=== PATIENT | female | born 1995 | race Hispanic/Latino ===

== ENCOUNTER 2018-04-19 18:21 | Observation (INO) | payer OTHER ==
[~2018-04-19] VITALS: Ht 160 cm; Wt 86.2 kg
[~2018-04-19 18:21] MED LIST: MOTRIN600 MG PO
[2018-04-19 21:21] VITALS: BP 122/84
[2018-04-19 22:45] LABS: ABSOLUTE BASOPHIL COUNT 0 /CUMM (0.0-0.2); ABSOLUTE EOSINOPHIL COUNT 0 /CUMM (0.0-0.7); ABSOLUTE GRANULOCYTE CT 13.8 /CUMM (1.4-6.5); ABSOLUTE LYMPH COUNT 1.5 /CUMM (1.2-3.4); ABSOLUTE MONOCYTE COUNT 0.7 /CUMM (0.10-0.60); BASOPHIL % 0.1 % (0.0-2.0); EOSINOPHIL % 0.1 % (0-5); HEMATOCRIT 33.5 % (37-47); MEAN CORPUSCULAR HGB 27.7 PG (27.0-31.0); MEAN CORPUSCULAR HGB CONC 33.1 G/DL (33.0-37.0); MEAN CORPUSCULAR VOLUME 83.7 FL (81.0-99.0); MEAN PLATELET VOLUME 9.5 FL (7.4-10.4); PLATELET COUNT 210 /CUMM (130-400); RBC DISTRIBUTION WIDTH 14.8 % (11.5-14.5); WHITE BLOOD CELL COUNT 16.1 /CUMM (4.8-10.8)
[2018-04-19 22:50] LABS: GRANULOCYTE % 85.8 % (42.2-75.2)
--- NOTE | 2018-04-20 09:42 | PN- OBGYN ---
Surgical Brief Attending Note Brief Attending Note: 23yo, 39 2/7 wks, c/o ctxs since 04/19/2018, gettiong closer, also c/o a little decreased movement,? ROM. came to CBC for evaluation. on TOCO: ctxs q2-3 min, FHR cat I, cervix was 1 cm/posterior. Amnisure negative x 2. pt was kept for observation overnight, she was given morphin and vistril for theraputic rest. uneventful overnight, pt rested. This morning, she felt better, c/o ctxs spaced out, less painful. on TOCO: ctxs q 5-6 min, FHT assuring, cervix 2cm by RN. will d/c home with labor precautions reviewed with pt, she understand. FKC and precautions given. she understand.
[2018-04-21] MEDS ORDERED: PRENATAL TABLE1 EAC2 PO (08:36)
== END 2018-04-20 08:40 ==
LOC: CBCO 18:21 → GNO 21:15
PROVIDERS: Obstetrics & Gynecology
DX: O47.1 False labor at or after 37 completed weeks of gestation (principal); Z3A.39 39 weeks gestation of pregnancy
CPT/HCPCS: 36415; 81001; 84112; 96360; 96361; 96372; 96374; G0378; G0463; J2405; J7120

== ENCOUNTER 2018-04-21 00:50 | Inpatient (IN) | payer OTHER ==
[~2018-04-21] VITALS: Ht 160 cm; Wt 87.1 kg
[2018-04-21] MEDS ORDERED: PRENATAL TABLE1 EAC2 PO (08:36)
--- NOTE | 2018-04-21 16:35 | History & Physical ---
General Information and HPI MD Statement: I have seen and personally examined CARA SHAH and documented this H&P. The patient is a 23 year old female at [39] weeks and [4] days gestation who presented with a chief complaint of [CTX]. Source of Information: patient Exam Limitations: no limitations History of Present Illness: 23yo, 39 4/7wks, c/o ctxs for 3 days, she was evaluated and given therapeutic rest April 19, 2018 . She was discharged on April 20, 2018 due to no active labor . As per patient, contractions getting stronger and closer since yesterday, came to CBC for evaluation early this morning, her cervix was 3 cm dilated, she used nitrous for pain management. care started 10 weeks, uncomplicated thus far, history of thyroid nodule and she had partial thyroidectomy 2012 no medications afterwards. GBS positive. Allergies/Medications Allergies: Coded Allergies: cefixime (Intermediate, DIARRHEA 04/19/18) cefprozil (Intermediate, DIARRHEA 04/19/18) Home Med list Ibuprofen (Motrin) 600 MG TAB 1 TAB PO Q6P PRN PAIN Vit No.130/Iron/FA ( Tablet) 27 MG IRON-800 MCG TABLET 1 TAB PO DAILY supplement (Reported) Compliance With Home Meds: GOOD Past History word processor History : 1 Para: 0 Last Menstrual Period: 07/18/2017 Estimated Delivery Date: 04/24/2018 Past word processor History: none Medical History Blood Transfusion Hx: No Neurological: NONE EENT: NONE Cardiovascular: NONE Respiratory: asthma Gastrointestinal: GERD Hepatic: NONE Renal: NONE Musculoskeletal: h/o herniated disc Psychiatric: NONE Endocrine: hyperthyroidism Blood Disorders: NONE Cancer(s): NONE DIRECTOR OF SOCIAL WORK/Reproductive: NONE Surgical History Pertinent Surgical History: partial thyroidectomy 2012 laminectomy 2004 Past Family/Social History Psychosocial History Smoking Status: Never Smoked ETOH Use: denies use Illicit Drug Use: denies illicit drug use Review of Systems Review of Systems Constitutional: Reports: no symptoms. EENTM: Reports: no symptoms. Cardiovascular: Reports: no symptoms. Respiratory: Reports: no symptoms. GI: Reports: no symptoms. Genitourinary: Reports: see HPI. Musculoskeletal: Reports: see HPI. Skin: Reports: no symptoms. Neurological/Psychological: Reports: no symptoms. Hematologic/Endocrine: Reports: no symptoms. Immunologic/Allergic: Reports: no symptoms. All Other Systems: Reviewed and Negative Exam & Diagnostic Data Obstetric Exam Wgt Gained During : 49 lbs Pelvimetry: seems adequate Dilation (cm): 3 Effacement (%): 100 Station: -2 Membranes: intact Fluid: unknown Fundal Height (cm): 39 Multiple Gestation? No Contractions: q 2-5 min #1 - FHR Baseline: 140 Category: 1 Estimated Weight: 3800g Presentation: vertex Patient for Induction? No Physical Exam: VSS General: NAD Abdomen: gravid, soft, nontender. Ext: DCT (-) Labs Blood Type & Rh: O positive Antibody Screen: negative Hct/Hgb & Platelets #1: 13.5/39.9%,PLT [id number] Hct/Hgb & Platelets #2: 11.3/34.7%,[id number] Rubella: immune VDRL #1: negative VDRL #2: negative HbsAg: negative HIV #1: negative HIV #2 negative 1 Hr P Group B Strep: positive Initial Ultrasound: IUP at 10 wks Anatomy Ultrasound: nl Ultrasound for EFW: 7lb 7 oz at 38 wks Genetic Testing: nl Last 24 Hrs of Labs/Nigel: Laboratory Tests 04/21/18 1644: CBC w Diff NO MAN DIFF REQ, RBC 3.99 L, MCV 83.2, MCH 28.0, MCHC 33.7, RDW 14.8 H, MPV 9.0, Gran % 88.6 H, Lymphocytes % 6.4 L, Monocytes % 4.7, Eosinophils % 0, Basophils % 0.3, Absolute Granulocytes 16.0 H, Absolute Lymphocytes 1.2, Absolute Monocytes 0.8 H, Absolute Eosinophils 0, Absolute Basophils 0.1 Assessment/Plan Assessment/Plan: 23yo, 39 4/7wks, labor 1. admit pt, admission labs 2. antibiotics for GBS prophylaxis 3. pain management as needed 4. will monitor closely As Ranked By This Provider Problem List: 1. Core Measures Venous Thromboembolism VTE Risk Factors / No Mechanical VTE Prophylaxis d/t LowRisk-No Interven Req'd No VTE Pharm Prophylaxis d/t LowRisk-No Interven Req'd Attending MD Review Statement Attending Statement Attending MD Statement: examined this patient, discussed with family, discussed w/nursing
[2018-04-21 16:53] LABS: ABSOLUTE BASOPHIL COUNT 0.1 /CUMM (0.0-0.2); ABSOLUTE EOSINOPHIL COUNT 0 /CUMM (0.0-0.7); ABSOLUTE LYMPH COUNT 1.2 /CUMM (1.2-3.4); ABSOLUTE MONOCYTE COUNT 0.8 /CUMM (0.10-0.60); BASOPHIL % 0.3 % (0.0-2.0); EOSINOPHIL % 0 % (0-5); GRANULOCYTE % 88.6 % (42.2-75.2); HEMATOCRIT 33.2 % (37-47); MEAN CORPUSCULAR HGB CONC 33.7 G/DL (33.0-37.0); MEAN CORPUSCULAR VOLUME 83.2 FL (81.0-99.0); PLATELET COUNT 226 /CUMM (130-400); RBC DISTRIBUTION WIDTH 14.8 % (11.5-14.5); RED BLOOD CELL CT 3.99 /CUMM (4.20-5.40); WHITE BLOOD CELL COUNT 18.1 /CUMM (4.8-10.8)
--- NOTE | 2018-04-21 21:15 | PN- OBGYN ---
Surgical Brief Attending Note Brief Attending Note: pt c/o ctxs pain , request epidural on TOCO: ctxs q 2-3 min, FHR cat I cervix 4cm/100%/-2 will give epidural for pain maangement. monitor closely
[2018-04-21 23:50] VITALS: BP 134/78
--- NOTE | 2018-04-22 06:27 | PN- OBGYN ---
Surgical Brief Attending Note Brief Attending Note: pt is comfortable with epidural, no complaints on TOCO: ctxs q 2-3 min, FHR baseline 140, modertae variability, + acels, occasional variable decels, quickly returned to baseline cervix 7cm/100%/-2 will continue monitor closely
--- NOTE | 2018-04-22 09:12 | PN- OBGYN ---
Surgical Brief Attending Note Brief Attending Note: 08:30 Pt. is comfortable, denies pain. Feeling some pelvic pressure. Pelvic - membranes bulging, AROM - light meconium in abundant volume of AF cervix 7-8cm, 80%, -2 FHR 145, category 1, +accels, had a variable with my exam UCs q3-5 A: spontaneous labor at 39w P: con't present management IV Ab for GBS Peds to delivery for meconium, pt aware may need Pitocin augmentation 12:15pm Ucs q4, short, good pain control FHR 140s, category 1 Cervix unchanged and anterior lip swollen +soft caput presenting, bedside sono confirmed cephalic presentation Recommended Pitocin augmentation, pt in agreement Benadryl for cervical swelling 3:30pm UCs q3, moderate intensity, rectal pressure is very strong per patient rim/anterior lip slightly swollen, + caput, no molding (suture palpated laterally) FHR BL 145, category 1, no decels leaking AF with nonparticulate meconium will re-examine patient in 1 hour and try to push past the lip 1730 9cm, VTX(caput) at 0 station Temp 100.1 FHR 140s, cat. 1 UCs q2-3, mild/mod. A: protracted active labor at 39w after days of prolonged prodromal labor maternal temp rising P: IV Tylenol will be administered, and if T>100.3 will add Gentamicin I discussed slow labor with patient, which is abnormal, and doesn't make vaginal delivery impossible, but in order to continue to "wait longer" for the Pitocin to resolve the remaining cervix, the FHR must stay fine. In addition to wanting to wait longer, patient refuses to try pushing a few times right now to see if the cervix retracts, as she "doesn't want to damage the cervix". When I mention a possible C/S patient gets very upset and states "I won't do that after being in labor for 4 days". I'll re-evaluate her in 1 hour. 1944 Pt has been pushing for >1 hr. She pushes hard, and has brought the vertex down to 0/+1 station, but a large caput is deceiving and seems the baby is lower than it is. An anterior lip is still slipping in front of the head between contractions. I suspect OP position. FHR tracing is category 2, there are variable decels between UCs, variability is moderate until just recently, and there are no accels. Patient feels warm, and I suspect a developing chorioamnionitis. I recommended delivery by primary C/S, discussed the risks, benefits, and indications, and patient has given me informed consent. The patient received IV Tylenol which keeps her temp down, and has been getting PCN throughout the day for GBS. For OR premedication I will use Genta and Clinda.
--- NOTE | 2018-04-23 07:37 | Operative Report ---
Operative/Inv Procedure Report Surgery Date: 04/22/18 Name of Procedure: primary C/S Pre-Operative Diagnosis: arrest of second stage Post-Operative Diagnosis: same Estimated Blood Loss: scant (600) Surgeon/Beadworker: Jocelynn Duval MD Anesthesia: block (epidural) IV Fluids: LR Urine Output: 400, red, clear Specimens: placenta, cord blood Complications: none Condition: good
[2018-04-23 09:01] LABS: ABSOLUTE BASOPHIL COUNT 0 /CUMM (0.0-0.2); ABSOLUTE EOSINOPHIL COUNT 0 /CUMM (0.0-0.7); ABSOLUTE GRANULOCYTE CT 18.3 /CUMM (1.4-6.5); ABSOLUTE LYMPH COUNT 0.9 /CUMM (1.2-3.4); BASOPHIL % 0 % (0.0-2.0); EOSINOPHIL % 0 % (0-5); GRANULOCYTE % 90.5 % (42.2-75.2); HEMATOCRIT 29.8 % (37-47); MEAN CORPUSCULAR HGB 27.9 PG (27.0-31.0); MEAN CORPUSCULAR HGB CONC 33.7 G/DL (33.0-37.0); MEAN CORPUSCULAR VOLUME 82.8 FL (81.0-99.0); MEAN PLATELET VOLUME 9.3 FL (7.4-10.4); PLATELET COUNT 173 /CUMM (130-400); RBC DISTRIBUTION WIDTH 14.8 % (11.5-14.5); WHITE BLOOD CELL COUNT 20.2 /CUMM (4.8-10.8)
--- NOTE | 2018-04-23 16:53 | PN- Post Delivery/GYN ---
Subjective Subjective: pt is ambulating, doing well, tolertae diet, void without difficulties.c/o lower extremity edema. Review of Systems Constitutional: Reports: no symptoms. Cardiovascular: Reports: no symptoms. Respiratory: Reports: no symptoms. Gastrointestinal: Reports: no symptoms. Genitourinary: Reports: see HPI. All Other Systems: Reviewed and Negative Objective Last 24 Hrs of Vital Signs/I&O Vital Signs Date Time Temp Pulse Resp B/P B/P Pulse O2 O2 Flow FiO2 Mean Ox Delivery Rate 04/23 1134 Room Air 04/22 1734 38.2 Physical Exam: VSS General: NAD CV RRR Lungs CTA B/L Abdomen: soft, mild tender at incision site, uterus firm, fundus below umbilicus. incision D/C/I. lochia mild Ext: edema(+), DCT (-) Current Medications: Current Medications Sig/Gilda Start time Last Medication Dose Route Stop Time Status Admin Acetaminophen 650 MG Q6PRN PRN 04/22 2230 AC PO Acetaminophen 1,000 MG ONCE ONE 04/22 1730 DC 04/22 IV 04/22 1731 1734 Bisacodyl 10 MG DAILY NEEDED PRN 04/22 2215 AC SD Citric Acid/Sodium 30 ML .[0NCE] 04/22 2000 DC 04/22 Citrate PO 2005 Clindamycin 900 MG IQ8 04/22 2000 DC 04/22 Dextrose/Water 50 ML IV 2005 Docusate Sodium 100 MG AT BEDTIME PRN 04/22 2215 AC PO Enoxaparin Sodium 40 MG DAILY 04/23 09 04/23 SC 1008 Fentanyl Citrate 100 MCG .STK-MED ONE 04/22 2014 DC IM 04/22 2015 Gentamicin Sulfate 100 MG IQ8 PRN 04/22 1745 DC Dextrose/Water 100 ML IV Ibuprofen 800 MG Q6P PRN 04/22 2215 AC 04/23 PO 1603 Ketorolac 30 MG Q6-PRN PRN 04/23 0030 AC 04/23 Tromethamine IV 1013 Lactated Ringer's 1,000 ML Q8H 04/22 2215 AC 04/23 IV 0305 Lactated Ringer's 1,000 ML CONTINOUS INFUSION 04/22 2000 DC IV Lactated Ringer's 1,000 ML Q8H 04/21 1630 DC 04/22 IV 1540 Methylergonovine 200 MCG 4 TIMES/DAY 04/23 0230 AC 04/23 Maleate PO 1401 Methylergonovine 0.2 MG .STK-MED ONE 04/22 2205 DC Maleate IM 04/22 2206 Midazolam HCl 5 MG .STK-MED ONE 04/22 2014 DC IM 04/22 2015 Morphine Sulfate 10 MG .STK-MED ONE 04/22 2013 DC IV 04/22 2014 Oxycodone/ 1 TAB Q4P PRN 04/22 2215 AC Acetaminophen PO Oxycodone/ 2 TAB Q4P PRN 04/22 2215 AC Acetaminophen PO Oxytocin 20 UNITS .STK-MED ONE 04/22 2209 DC IV 04/22 2210 Oxytocin 10 UNITS .STK-MED ONE 04/22 2024 DC IM 04/22 2025 Oxytocin 10 UNITS .STK-MED ONE 04/22 2004 DC IM 04/22 2005 Oxytocin 30 UNITS PER PROTOCL 04/22 1215 DC 04/22 Lactated Ringer's 500 ML IV 04/23 1214 1216 Penicillin G 2.5 MU Q4H 04/21 2030 DC 04/22 Potassium IV 1614 Dextrose/Water 100 ML Last 24 Hrs of Labs/Nigel: Laboratory Tests 04/23/18 0640: CBC w Diff MAN DIFF ORDERED, RBC 3.60 L, MCV 82.8, MCH 27.9, MCHC 33.7, RDW 14.8 H, MPV 9.3, Gran % 90.5 H, Lymphocytes % 4.7 L, Monocytes % 4.8, Eosinophils % 0, Basophils % 0, Absolute Granulocytes 18.3 H, Segmented Neutrophils 84 H, Band Neutrophils 7 H, Absolute Lymphocytes 0.9 L, Lymphocytes 4 L, Monocytes 5, Absolute Monocytes 1.0 H, Absolute Eosinophils 0 , Absolute Basophils 0, Platelet Estimate ADEQUATE, Normocytic RBCs VERIFIED, Polychromasia , Hypochromic-Microcytic 1+, Basophilic Stippling SLIGHT Assessment/Plan Assessment/Plan 23yo, s/p PLTCS,POD#1 1. encourage ambulation and 2. pain management as needed 3.RT PP care Problem List: 1. Attending MD Review Statement Attending Statement Attending MD Statement: examined this patient, discussed with family, discussed with nursing
--- NOTE | 2018-04-24 15:34 | PN- OBGYN ---
Surgical Brief Attending Note Brief Attending Note: pt feeling better today. amb / void / madonna po. pain well controlled. +bf. + flatus. feels less swollen than yesterday. afeb, v/ss nad abd soft nt nd ff inc c/d/i elisabeth min lochia ext nt +2 b/l le ed a/p pod 2 s/p c/s, doing well -cont routine pop care
[2018-04-25] MEDS ORDERED: IBUPROFEN800 M1 PO (08:14)
[2018-04-25] MEDS ORDERED: PERCOCET 5-3251 EACH PO (08:14)
--- NOTE | 2018-04-25 10:22 | PN- OBGYN ---
Surgical Brief Attending Note Brief Attending Note: POD#3 pt is resting in bed, no complaints, tolerate diet, void without difficulties. flatus(+) PE: VSS CV RRR lungs CTA B/L Abdomen: soft, nontender, uterus firm, fundus below umbilicus, incision D/C/I, lochia mild. ext: DCT (-) A/P: 23yo, s/p PLTCS, POD#3 1. encourage ambualtion and 2. pain management as needed 3. will d/c home, f/u in office in 2 wks and 6 wks. discharge instructions given. she understand.
== END 2018-04-25 11:00 | DRG 766 ==
LOC: CBCO 00:50 → GNO 02:30
PROVIDERS: Obstetrics & Gynecology
PROC: 10D00Z1 Extraction of Products of Conception, Low, Open Approach (ICD-10-PCS; principal; 2018-04-23)
DX: O99.284 Endocrine, nutritional and metabolic diseases complicating childbirth (principal); O62.1 Secondary uterine inertia; Z3A.39 39 weeks gestation of pregnancy; Z37.0 Single live birth; K21.9 Gastro-esophageal reflux disease without esophagitis; O99.613 Diseases of the digestive system complicating pregnancy, third trimester; E05.90 Thyrotoxicosis, unspecified without thyrotoxic crisis or storm
CPT/HCPCS: GNOP; GNOS; 36415; 87086; 88307; 96360; G0378; G0463; J1200; J1580; J1650; J1885; J2210; J2270; J2405; J7120